=== PATIENT | female | born 1980 | race African-American/Black ===

== ENCOUNTER 2016-07-11 11:24 | Emergency (ER) | payer MEDICAID ==
[~2016-07-11] VITALS: Ht 170.2 cm; Wt 81.6 kg
[~2016-07-11 11:24] MED LIST: ALBUTEROL SULF8.5 GM INH; PROMETHAZINE-D118 ML ORAL
[2016-07-11 11:59] LABS: APPEARANCE,URINE CLEAR
[2016-07-11 12:00] LABS: KETONES,URINE NEGATIVE (NEGATIVE); LEUKOCYTE ESTERASE ,URINE NEGATIVE (NEGATIVE); NITRITE,URINE NEGATIVE (NEGATIVE); PH,URINE 5 (4.5-8.0); PROTEIN,URINE NEGATIVE (NEGATIVE); UROBILINOGEN,URINE NORMAL MG/DL (0.0-1.0)
[2016-07-11] MEDS ORDERED: Ketorolac 30mg Inj IM ONE (12:30)
[2016-07-11] MEDS ORDERED: Cyclobenzaprine 10mg Tab ORAL ONE (12:30)
[2016-07-11] MEDS ORDERED: CYCLOBENZAPRINE10 MG ORAL (13:26)
[2016-07-11] MEDS ORDERED: IBUPROFEN600 MG ORAL (13:26)
[2016-07-11] MEDS ORDERED: ZOFRAN ODT4 MG ORAL (13:26)
[2016-07-11 13:34] VITALS: BP 116/77
--- NOTE | 2016-07-11 13:41 | Emergency Room Report ---
History of Present Illness General Chief Complaint: Pain Source: Patient Present Illness HPI 35-year-old female presents ED complaining of left-sided flank pain. X3 days. States that she went camping last week and fell on her left ribs. Denies any other injuries. Notes 10 out of 10 pain to the left ribs, radiating through the back, throbbing, worse with twisting. No other aggravating or relieving factors. Denies chest pain or shortness of breath. Denies dysuria or hematuria. denies fevers or chills. Denies any other associated symptom Allergies: Coded Allergies: IODINE (Verified Allergy, Unknown, 07/11/16) PINEAPPLE (Verified Allergy, Unknown, 07/11/16) Uncoded Allergies: FISH (Allergy, Unknown, 07/11/16) Patient History Past Medical History: asthma Past Surgical History: none Pertinent Family History: none Social History: Denies: alcohol use, drug use, smoking Last Menstrual Period: Six weeks ago - test by PMD negative on Tuesday. Now: No Immunizations: UTD Reviewed Nursing Documentation: PMH: Agreed, PSxH: Agreed Nursing Documentation-PMH Hx Asthma: Yes Review of Systems All Other Systems: negative except mentioned in HPI Physical Exam Vital Signs Date Time Temp Pulse Resp B/P Pulse Ox O2 Delivery O2 Flow Rate FiO2 07/11/16 11:26 98.2 73 16 117/74 100 Room Air Sp02 EP Interpretation: reviewed, normal General Appearance: no apparent distress, alert, GCS 15, non-toxic Head: normocephalic Eyes: bilateral eye PERRL, bilateral eye normal inspection ENT: normal ENT inspection Neck: normal inspection Respiratory: lungs clear, normal breath sounds, speaking full sentences, other - reproducible L rib pain Cardiovascular #1: regular rate, rhythm, no edema Gastrointestinal: normal bowel sounds, non tender, soft, non-distended, no guarding, no rebound Rectal: deferred Genitourinary: no CVA tenderness Musculoskeletal: normal inspection Neurologic: alert, oriented x3, responsive, motor strength/tone normal, sensory intact, speech normal Psychiatric: normal inspection Skin: normal inspection Lymphatic: normal inspection Medical Decision Making Diagnostic Impression: Primary Impression: Rib contusion Qualified Codes: S20.212A - Contusion of left front wall of thorax, initial encounter ER Course Hospital Course 35-year-old female presents to ED with left-sided rib pain, flank pain Differential diagnoses include: rib fx, UTI, pyelonephritis Clinical course Patient placed on stretcher. After initial history and physical, I ordered pain medications and L rib series, UA UA negative Xrays prelim read shows no acute fracture/dislocation. Upon reassessment pain improved Diagnosis - rib contusion Stable and discharged to home with prescription for Motrin, flexeril, zofran. apply heat. weight bear as tolerated. Followup with PMD. Return to ED if symptoms recur or worsen Labs Test 07/11/16 11:46 Urine Color Yellow Urine Appearance Clear Urine pH 5 (4.5-8.0) Urine Specific [place] 1.020 (1.005-1.035) Urine Protein Negative (NEGATIVE) Urine Glucose (UA) Negative (NEGATIVE) Urine Ketones Negative (NEGATIVE) Urine Occult Blood Negative (NEGATIVE) Urine Nitrite Negative (NEGATIVE) Urine Bilirubin Negative (NEGATIVE) Urine Urobilinogen Normal MG/DL (0.0-1.0) Urine Leukocyte Esterase Negative (NEGATIVE) Urine HCG, Qualitative Negative Other X-Ray Diagnostic Results Other X-Ray Diagnostic Results : X-Ray Ordered: L rib series EP Interpretation: Yes Findings: no fractures, no dislocation, no soft tissue swelling Number of Views: 3 Last Vital Signs Date Time Temp Pulse Resp B/P Pulse Ox O2 Delivery O2 Flow Rate FiO2 07/11/16 13:34 83 14 116/77 100 Room Air 07/11/16 13:34 98.4 Status: improved Disposition: HOME, SELF-CARE Condition: Stable Scripts Ondansetron Odt* (ZOFRAN ODT*) 4 Mg Tab.rapdis 4 MG ORAL Q6H Y for Nausea & Vomiting, #30 TAB 0 Refills Prov: FRANCHESCA CARPENTER M.D. 07/11/16 Cyclobenzaprine Hcl* (FLEXERIL*) 10 Mg Tablet 10 MG ORAL TID Y for Muscle Spasm, #20 TAB Prov: FRANCHESCA CARPENTER M.D. 07/11/16 Ibuprofen* (MOTRIN*) 600 Mg Tablet 600 MG ORAL Q8H Y for For Pain, #30 TAB 0 Refills Prov: FRANCHESCA CARPENTER M.D. 07/11/16 Departure Forms: Return to Work Return to Work Date: Jul 13, 2016 Work Restrictions: No Heavy Lifting Patient Instructions: Rib Contusion FRANCHESCA CARPENTER M.D. Jul 11, 2016 13:41
--- NOTE | 2016-07-12 10:32 | Diagnostic Imaging Report ---
Indication: PAIN Technique: Multiple views of the left ribs Comparison: None Findings: There are questionable fractures of the left eighth and ninth ribs at the costochondral junctions, seen only a single view. No other acute fractures. No gross pneumothorax Impression: Equivocal fractures of the left eighth and ninth costochondral junctions. Correlate with clinical findings
== END 2016-07-11 13:37 | disposition home or self-care (01) ==
LOC: EMR 12:30
DX: S20.212A Contusion of left front wall of thorax, initial encounter (principal); J45.909 Unspecified asthma, uncomplicated; Z91.041 Radiographic dye allergy status; Z91.013 Allergy to seafood; Z91.018 Allergy to other foods; W18.30XA Fall on same level, unspecified, initial encounter; Y92.9 Unspecified place or not applicable; Y99.8 Other external cause status
CPT/HCPCS: 71100; 81003; 81025; 96372; 99284; J1885

== ENCOUNTER 2017-03-01 10:21 | Emergency (ER) | payer MEDICAID ==
[~2017-03-01] VITALS: Ht 167.6 cm; Wt 72.6 kg
[~2017-03-01 10:21] MED LIST changes: +CYCLOBENZAPRINE10 MG ORAL; +IBUPROFEN600 MG ORAL; +ZOFRAN ODT4 MG ORAL
--- NOTE | 2017-03-01 12:32 | Diagnostic Imaging Report ---
Indication: Pain right ankle Comparison: None Findings: 3 views of the right ankle obtained. No acute fracture, malalignment, periostitis, or osteochondral defects are identified. Soft tissues are unremarkable. Impression: Negative examination
--- NOTE | 2017-03-01 12:32 | Emergency Room Report ---
History of Present Illness General Chief Complaint: Lower Extremity Injury Source: Patient Present Illness HPI Patient twisted he ankle at home 1 hour prior to coming in. Unable to walk on ankle. Most of pain is lateral. No medicine taken. Denies prior injury to this area. Pain 10/10, burning/aching, some radiation to leg. No numbness. h/o asthma. No somatic complaints. Not . Allergies: Coded Allergies: IODINE (Verified Allergy, Unknown, 07/11/16) PINEAPPLE (Verified Allergy, Unknown, 07/11/16) Uncoded Allergies: FISH (Allergy, Unknown, 07/11/16) Patient History Past Medical History: see triage record Social History: Denies: smoking Social History Narrative student Reviewed Nursing Documentation: PMH: Agreed, PSxH: Agreed Nursing Documentation-PMH Hx Asthma: Yes Review of Systems All Other Systems: negative except mentioned in HPI Physical Exam Vital Signs Date Time Temp Pulse Resp B/P (MAP) Pulse Ox O2 Delivery O2 Flow Rate FiO2 03/01/17 10:29 98.2 66 20 120/66 98 Room Air Sp02 EP Interpretation: reviewed, normal General Appearance: well appearing, no apparent distress, GCS 15 Head: normocephalic, atraumatic Eyes: bilateral eye normal inspection, bilateral eye PERRL ENT: hearing grossly normal, normal voice, moist mucus membranes Neck: full range of motion, supple Respiratory: no respiratory distress, speaking full sentences Cardiovascular #2: 2+ dorsalis pedis (R) - good cap fill Gastrointestinal: normal inspection Musculoskeletal: no calf tenderness, decreased range of mation, other - ankle ligs stable but lateral tenderness, no 5th MT tend, unable to weight bear Neurologic: alert, motor strength/tone normal, sensory intact, grossly normal Psychiatric: mood/affect normal Skin: no rash, other - no ecchymoses Medical Decision Making Diagnostic Impression: Primary Impression: Ankle sprain Qualified Codes: S93.411A - Sprain of calcaneofibular ligament of right ankle , initial encounter ER Course Patient with ankle injury. Perley rules suggest x-ray to exclude fracture. Other dx: sprain. Analgesia given. Xrays without fx. Air splint applied by tech. Position excellent and neurovasc normal as checked by me. Pain decreased. Patient stable for outpatient observation and treatment. Other X-Ray Diagnostic Results Other X-Ray Diagnostic Results : X-Ray ordered: R ankle # of Views/Limited Vs Complete: 3 View Indication: Pain EP Interpretation: Yes Interpretation: no dislocation, no soft tissue swelling, no fractures, nonspecific bowel gas Impression: No acute disease Electronically Signed by: Angelo Cleveland MD Last Vital Signs Date Time Temp Pulse Resp B/P (MAP) Pulse Ox O2 Delivery O2 Flow Rate FiO2 03/01/17 13:14 98.2 68 20 120/66 98 Room Air Status: improved Disposition: HOME, SELF-CARE Condition: Improved Scripts Tramadol Hcl* (ULTRAM*) 50 Mg Tablet 50 MG ORAL Q6H Y for For Pain, #14 TAB 0 Refills Prov: Angelo Cleveland M.D. 03/01/17 Ibuprofen* (MOTRIN*) 600 Mg Tablet 600 MG ORAL Q6H Y for For Pain, #20 TAB Prov: Angelo Cleveland M.D. 03/01/17 Referrals: BHAVIK KINSEY,REFERRING (PCP) Angelo Cleveland M.D. Mar 01, 2017 12:32
[2017-03-01] MEDS ORDERED: IBUPROFEN600 MG ORAL (12:35)
[2017-03-01] MEDS ORDERED: TRAMADOL HCL50 MG ORAL (12:35)
[2017-03-01 13:14] VITALS: BP 120/66
== END 2017-03-01 12:35 | disposition home or self-care (01) ==
LOC: EMR 11:11
DX: S93.401A Sprain of unspecified ligament of right ankle, initial encounter (principal); W01.0XXA Fall on same level from slipping, tripping and stumbling without subsequent striking against object, initial encounter; Y92.89 Other specified places as the place of occurrence of the external cause; J45.909 Unspecified asthma, uncomplicated
CPT/HCPCS: 99284

== ENCOUNTER 2017-05-31 18:33 | Emergency (ER) | payer MEDICAID ==
[~2017-05-31] VITALS: Ht 170.2 cm; Wt 77.1 kg
[~2017-05-31 18:33] MED LIST changes: +TRAMADOL HCL50 MG ORAL
[2017-05-31] MEDS ORDERED: Ketorolac 60mg Inj IM ONE (20:45)
[2017-05-31] MEDS ORDERED: TAMIFLU75 MG ORAL (21:08)
[2017-05-31] MEDS ORDERED: PROMETHAZINE-D118 ML ORAL (21:08)
[2017-05-31] MEDS ORDERED: IBUPROFEN600 MG ORAL (21:08)
[2017-05-31 21:18] VITALS: BP 118/84
--- NOTE | 2017-05-31 22:03 | Emergency Room Report ---
History of Present Illness General Chief Complaint: Upper Respiratory Illness Source: Patient Present Illness [facility] The patient is a 36-year-old female who denies medical history presenting for 2 days of cough, fever, chills, and total body pain. She denies any known sick contacts recent travel. She does not have flu shot this year. She has not tried any medications yet. She admits to nausea but denies other symptoms including vomiting, rash, dizziness, neck stiffness Allergies: Coded Allergies: IODINE (Verified Allergy, Unknown, 07/11/16) PINEAPPLE (Verified Allergy, Unknown, 07/11/16) Uncoded Allergies: FISH (Allergy, Unknown, 07/11/16) Patient History Past Medical History: see triage record Pertinent Family History: none Last Menstrual Period: Current Now: No Reviewed Nursing Documentation: PMH: Agreed, PSxH: Agreed Nursing Documentation-PMH Hx Hypertension: Yes Hx Asthma: Yes Review of Systems All Other Systems: negative except mentioned in HPI Physical Exam Vital Signs Date Time Temp Pulse Resp B/P (MAP) Pulse Ox O2 Delivery O2 Flow Rate FiO2 05/31/17 18:56 99.9 84 16 114/83 98 Room Air Sp02 EP Interpretation: reviewed, normal General Appearance: no apparent distress, alert, GCS 15, non-toxic, lethargic Head: normocephalic, atraumatic Eyes: bilateral eye normal inspection, bilateral eye PERRL ENT: hearing grossly normal, no angioedema, normal voice, pharyngeal erythema Neck: full range of motion, supple/symm/no masses Respiratory: chest non-tender, lungs clear, normal breath sounds, speaking full sentences Cardiovascular #1: regular rate, rhythm, no edema Gastrointestinal: normal bowel sounds, non tender, soft, non-distended, no guarding, no rebound Genitourinary: normal inspection, no CVA tenderness Musculoskeletal: back normal, gait/station normal, normal range of motion, non- tender Neurologic: alert, oriented x3, responsive, motor strength/tone normal, sensory intact, speech normal Psychiatric: judgement/insight normal, memory normal, mood/affect normal, no suicidal/homicidal ideation Skin: normal color, no rash, warm/dry, well hydrated Lymphatic: no adenopathy Medical Decision Making PA Attestation Dr. Rivero is my supervising physician. Patient management was discussed with my supervising physician Diagnostic Impression: Primary Impression: Influenza ER Course The patient is a 36-year-old female who denies medical history presenting for 2 days of cough, fever, chills, and total body pain Differential diagnosis include but not limited to influenza, pharyngitis, sinusitis, AOM, bronchitis, PNA Physical exam: Afebrile but temp 100.0F. No apparent distress. Lethargic HEENT exam: There is pharyngeal erythema. Uvula midline. Moist mucous membranes. There is no cervical lymphadenopathy. Lungs are clear to auscultation bilaterally Skin is warm and dry. No rash Given IM toradol and zofran The patient will be discharged home with a prescription for motrin, tamiflu, and cough medication ER precautions. Patient will followup with primary care Last Vital Signs Date Time Temp Pulse Resp B/P (MAP) Pulse Ox O2 Delivery O2 Flow Rate FiO2 05/31/17 18:56 99.9 84 16 114/83 98 Room Air Status: improved Disposition: HOME, SELF-CARE Condition: Improved Scripts D-Methorphan Hb/Prometh Hcl* (PROMETHAZINE-DM SYRUP*) 118 Ml Syrup 5 ML ORAL Q6H Y for For Cough, #118 ML 0 Refills Prov: RUBENS TRAN.A. 05/31/17 Oseltamivir Phosphate (Tamiflu) 75 Mg Capsule 75 MG ORAL TWICE A DAY, #10 CAP Prov: CARMELAANRUBENS P.A. 05/31/17 Ibuprofen* (MOTRIN*) 600 Mg Tablet 600 MG ORAL Q8H Y for For Pain, #30 TAB 0 Refills Prov: RUBENS TRAN.A. 05/31/17 Patient Instructions: Influenza, Adult Additional Instructions: I discussed my findings with the patient. All questions and concerns have been answered. Treatment and medication compliance have been addressed. I advised the patient that they need to follow up with PMD in 3-5 days. Return to ED if symptoms worsen, new symptoms arise, or if needed for any reason. Patient verbalized understanding of discharge instructions. RUBENS TRAN May 31, 2017 22:03
== END 2017-05-31 21:18 | disposition home or self-care (01) ==
LOC: EMR 19:09
DX: J11.1 Influenza due to unidentified influenza virus with other respiratory manifestations (principal); I10 Essential (primary) hypertension; J45.909 Unspecified asthma, uncomplicated; Z91.013 Allergy to seafood; Z91.041 Radiographic dye allergy status; Z91.018 Allergy to other foods
CPT/HCPCS: 96372; 99284

== ENCOUNTER 2017-07-17 14:26 | Emergency (ER) | payer MEDICAID ==
[~2017-07-17] VITALS: Ht 170.2 cm; Wt 81.6 kg
[~2017-07-17 14:26] MED LIST changes: +TAMIFLU75 MG ORAL
[2017-07-17] MEDS ORDERED: IBUPROFEN600 MG ORAL (16:13)
[2017-07-17] MEDS ORDERED: PROMETHAZINE-D118 ML ORAL (16:13)
[2017-07-17 16:27] VITALS: BP 111/78
--- NOTE | 2017-07-17 17:41 | Emergency Room Report ---
History of Present Illness General Chief Complaint: Upper Respiratory Illness Source: Patient Present Illness [facility] The patient is a 36-year-old female presenting for one day of cough and subjective fever. She admits to a sick contact who is her daughter with similar symptoms. She states the cough is productive with yellow sputum. This causes an 8/10 dull ache to her mid chest. Occurs with coughing only. Does not radiate. She denies other symptoms including nausea, vomiting, shortness of breath, hemoptysis, diarrhea, fatigue, headache Allergies: Coded Allergies: IODINE (Verified Allergy, Unknown, 07/11/16) PINEAPPLE (Verified Allergy, Unknown, 07/11/16) Uncoded Allergies: FISH (Allergy, Unknown, 07/11/16) Patient History Past Medical History: see triage record Pertinent Family History: none Last Menstrual Period: 07/02/17 Now: No Reviewed Nursing Documentation: PMH: Agreed, PSxH: Agreed Nursing Documentation-PMH Hx Hypertension: Yes Hx Asthma: Yes Review of Systems All Other Systems: negative except mentioned in HPI Physical Exam Vital Signs Date Time Temp Pulse Resp B/P (MAP) Pulse Ox O2 Delivery O2 Flow Rate FiO2 07/17/17 14:47 100.8 96 18 130/84 97 Room Air Sp02 EP Interpretation: reviewed, normal General Appearance: no apparent distress, alert, GCS 15, non-toxic Head: normocephalic, atraumatic Eyes: bilateral eye normal inspection, bilateral eye PERRL ENT: hearing grossly normal, normal pharynx, no angioedema, normal voice Neck: full range of motion, supple/symm/no masses Respiratory: chest non-tender, lungs clear, normal breath sounds, speaking full sentences Cardiovascular #1: regular rate, rhythm, no edema Musculoskeletal: back normal, gait/station normal, normal range of motion, non- tender Neurologic: alert, oriented x3, responsive, motor strength/tone normal, sensory intact, speech normal Psychiatric: judgement/insight normal, memory normal, mood/affect normal, no suicidal/homicidal ideation Skin: normal color, no rash, warm/dry, well hydrated Lymphatic: no adenopathy Medical Decision Making PA Attestation Dr. Finley is my supervising physician. Patient management was discussed with my supervising physician Diagnostic Impression: Primary Impression: Cough ER Course The patient is a 36-year-old female presenting for one day of cough and subjective fever. Differential diagnosis include but not limited to pharyngitis, sinusitis, AOM, bronchitis, PNA, influenza PE: No apparent distress. Febrile. No TTP over maxillary or frontal sinuses. Lungs CTA bilat. No wheezing. No accessory muscle use. Heart: RRR, no abnormal heart sounds Ears: external auditory canal clear. Non erythematous. Bilat TM intact. Cone of light present bilat. No bulging of TM. No serous fluid seen. No nasal D/C No cervical lymphad No tonsillar exudate. Uvula midline.Oropharynx non erythematous The patient is given Motrin for fever Chest x-ray unremarkable She'll be discharged home and treated for likely viral illness. ER precautions are given Chest X-Ray Diagnostic Results Chest X-Ray Diagnostic Results : Chest X-Ray Ordered: Yes # of Views/Limited/Complete: 1 View Indication: Other - cough PA Xray: Interpretation reviewed, by supervising MD, and agrees with findings. Interpretation: no consolidation, no effusion, no pneumothorax, no acute cardiopulmonary disease Impression: No acute disease Electronically Signed by: Calixto Tran PA-C Last Vital Signs Date Time Temp Pulse Resp B/P (MAP) Pulse Ox O2 Delivery O2 Flow Rate FiO2 07/17/17 16:27 100.8 19 111/78 98 Room Air 07/17/17 16:27 85 Status: improved Disposition: HOME, SELF-CARE Condition: Improved Scripts Ibuprofen* (MOTRIN*) 600 Mg Tablet 600 MG ORAL Q8H Y for For Pain, #30 TAB 0 Refills Prov: TERZIAN,CALIXTO P.A. 07/17/17 D-Methorphan Hb/Prometh Hcl* (PROMETHAZINE-DM SYRUP*) 118 Ml Syrup 5 ML ORAL Q6H Y for For Cough, #118 ML 0 Refills Prov: TERZIAN,CALIXTO P.A. 07/17/17 Patient Instructions: Cough, Adult Additional Instructions: I discussed my findings with the patient. All questions and concerns have been answered. Treatment and medication compliance have been addressed. I advised the patient that they need to follow up with PMD in 3-5 days. Return to ED if pain remains or worsens, cough worsens or remains, you notice blood in your sputum, you notice wheezing, you experience a fever, or if needed for any reason. Patient verbalized understanding of discharge instructions. CALIXTO TRAN Jul 17, 2017 17:41
--- NOTE | 2017-07-18 10:47 | Diagnostic Imaging Report ---
Indication: Cough Comparison: 03/25/2011 A single view chest radiograph was obtained. Findings: Cardiomediastinal appearance is within normal limits for age. Pulmonary vascularity is appropriate. The diaphragmatic contour is smooth and costophrenic angles are sharp. No pleural effusions are identified. The bones are unremarkable. Impression: No acute findings
== END 2017-07-17 16:27 | disposition home or self-care (01) ==
LOC: EMR 14:45
DX: R05 Cough (principal); J45.909 Unspecified asthma, uncomplicated; I10 Essential (primary) hypertension; Z91.041 Radiographic dye allergy status; Z91.013 Allergy to seafood; Z91.018 Allergy to other foods
CPT/HCPCS: 71045; 99283

== ENCOUNTER 2017-08-08 22:55 | Emergency (ER) | payer MEDICAID ==
[~2017-08-08] VITALS: Ht 170.2 cm; Wt 85.3 kg
[2017-08-09] MEDS ORDERED: IBUPROFEN600 MG ORAL
[2017-08-09] MEDS ORDERED: ROBAXIN-750750 MG PO
[2017-08-09 00:35] VITALS: BP 112/72
[2017-08-09 00:40] VITALS: BP 125/84
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
--- NOTE | 2017-08-09 10:27 | Diagnostic Imaging Report ---
Indication: Chest pain Comparison: 07/17/2017 A single view chest radiograph was obtained. Findings: The findings are unchanged. Cardiac mediastinal silhouette is normal. Lungs are essentially clear. IMPRESSION: No acute disease
--- NOTE | 2017-08-09 16:25 | Cardiology Report ---
APPROVED REPORT EKG Measurement Heart [id number] Normal sinus rhythm Normal ECG
== END 2017-08-09 00:40 | disposition home or self-care (01) ==
LOC: EMR 23:21
DX: S13.9XXA Sprain of joints and ligaments of unspecified parts of neck, initial encounter (principal); I10 Essential (primary) hypertension; J45.909 Unspecified asthma, uncomplicated; Z91.041 Radiographic dye allergy status; Z91.018 Allergy to other foods; Z91.013 Allergy to seafood; R07.9 Chest pain, unspecified; V43.62XA Car passenger injured in collision with other type car in traffic accident, initial encounter; Y92.410 Unspecified street and highway as the place of occurrence of the external cause
CPT/HCPCS: 71045; 93005; 99284

== ENCOUNTER 2018-02-06 12:09 | Emergency (ER) | payer MEDICAID ==
[~2018-02-06] VITALS: Ht 175.3 cm; Wt 76.2 kg
[~2018-02-06 12:09] MED LIST changes: +ROBAXIN-750750 MG PO
[2018-02-06] MEDS ORDERED: Cephalexin 500mg cap ORAL ONE (12:45)
--- NOTE | 2018-02-06 12:46 | Emergency Room Report ---
History of Present Illness General Chief Complaint: Lower Extremity Injury Source: Patient Present Illness HPI Patient present with complaints of right knee pain She reports that she had a fall 3 days ago Since then she has noticed some discharge from the knee She also noticed increased swelling and mild redness Pain is worse with ambulation Denies any pelvic pain denies any ankle pain Patient also has discomfort to the right wrist Denies any fevers or chills Allergies: Coded Allergies: IODINE (Verified Allergy, Unknown, 07/11/16) PINEAPPLE (Verified Allergy, Unknown, 07/11/16) Uncoded Allergies: FISH (Allergy, Unknown, 07/11/16) Patient History Past Medical History: see triage record Pertinent Family History: none Now: No Reviewed Nursing Documentation: PMH: Agreed; PSxH: Agreed Nursing Documentation-PMH Past Medical History: No History, Except For Hx Hypertension: Yes Hx Asthma: Yes Review of Systems All Other Systems: negative except mentioned in HPI Physical Exam Vital Signs Date Time Temp Pulse Resp B/P (MAP) Pulse Ox O2 Delivery O2 Flow Rate FiO2 02/06/18 12:30 98.1 64 20 113/74 100 Room Air 98.1 Sp02 EP Interpretation: reviewed, normal General Appearance: well appearing, no apparent distress Head: normocephalic, atraumatic Eyes: bilateral eye PERRL, bilateral eye EOMI ENT: normal pharynx, no angioedema Neck: supple Respiratory: lungs clear Cardiovascular #1: regular rate, rhythm Gastrointestinal: non tender, soft Musculoskeletal: other - 2 skin abrasions involving the mid and lower aspect of the patella, surrounding erythema, there is a small effusion as well, patient is able to flex and extend the knee itself, no obvious fluctuance pelvic and ankle on the same region are nontender Neurologic: alert, oriented x3, responsive Skin: other - As above Lymphatic: no adenopathy Medical Decision Making Diagnostic Impression: Primary Impression: Abrasion Additional Impressions: Contusion Cellulitis ER Course Given the patient's history and presentation X-ray imaging was obtained of the patient's knee The wrist itself is freely mobile and I do not suspect any acute fractures Date in the x-rays did not show any acute pathology Given the erythema and the concern for early cellulitis patient was provided with antibiotics here and prescription in for home And is stable for close outpatient follow-up Other X-Ray Diagnostic Results Other X-Ray Diagnostic Results : X-Ray ordered: Right knee # of Views/Limited Vs Complete: 3 View Indication: Pain EP Interpretation: Yes Interpretation: no dislocation, no soft tissue swelling, no fractures Impression: No acute disease Electronically Signed by: Casimiro Last Vital Signs Date Time Temp Pulse Resp B/P (MAP) Pulse Ox O2 Delivery O2 Flow Rate FiO2 02/06/18 12:30 98.1 64 20 113/74 100 Room Air 98.1 Status: improved Disposition: HOME, SELF-CARE Condition: Improved Scripts Cephalexin* (KEFLEX*) 500 Mg Capsule 500 MG ORAL EVERY 6 HOURS for 10 Days, CAP Prov: Eulogio Rivero DO 02/06/18 Ibuprofen* (MOTRIN*) 600 Mg Tablet 600 MG ORAL Q8H PRN for For Pain, #20 TAB 0 Refills Prov: Eulogio Rivero DO 02/06/18 Additional Instructions: Patient is provided with the discharge instructions notified to follow up with primary doctor in the next 2-3 days otherwise return to the er with any worsening symptoms. Please note that this report is being documented using [employer] technology. This can lead to erroneous entry secondary to incorrect interpretation by the dictating instrument. Eulogio Rivero DO Feb 06, 2018 12:46
[2018-02-06] MEDS ORDERED: Tylenol #3 tab (300mg/30mg) ORAL ONE (13:30)
[2018-02-06] MEDS ORDERED: Bacitracin Oint UD TOPIC ONE ×2 (13:38→14:00)
[2018-02-06] MEDS ORDERED: IBUPROFEN600 MG ORAL (13:41)
[2018-02-06] MEDS ORDERED: CEPHALEXIN500 MG ORAL (13:41)
[2018-02-06 13:52] VITALS: BP 125/60
--- NOTE | 2018-02-07 10:35 | Diagnostic Imaging Report ---
Indication: Trauma, pain, status post fall Technique: 3 views of the right knee Comparison: None Findings: No acute fractures. No dislocations. No suprapatellar effusion. Impression: Negative
== END 2018-02-06 13:52 | disposition home or self-care (01) ==
LOC: EMR 13:28
DX: L03.115 Cellulitis of right lower limb (principal); S80.211A Abrasion, right knee, initial encounter; W18.30XA Fall on same level, unspecified, initial encounter; Y93.9 Activity, unspecified; Y92.9 Unspecified place or not applicable; I10 Essential (primary) hypertension; J45.909 Unspecified asthma, uncomplicated
CPT/HCPCS: 99283

== ENCOUNTER 2018-05-23 11:00 | Emergency (ER) | payer MEDICAID ==
[~2018-05-23] VITALS: Ht 165.1 cm; Wt 72.6 kg
[~2018-05-23 11:00] MED LIST changes: +CEPHALEXIN500 MG ORAL
[2018-05-23 11:05] VITALS: BP 140/85
[2018-05-23] MEDS ORDERED: UNOBMED (11:13)
[2018-05-23 11:58] LABS: APPEARANCE,URINE CLEAR; BILIRUBIN, URINE NEGATIVE (NEGATIVE); COLOR,URINE PALE YELLOW; GLUCOSE, URINE (UA) NEGATIVE (NEGATIVE); KETONES,URINE NEGATIVE (NEGATIVE); LEUKOCYTE ESTERASE ,URINE 1+ (NEGATIVE); NITRITE,URINE NEGATIVE (NEGATIVE); PH,URINE 6 (4.5-8.0); PROTEIN,URINE NEGATIVE (NEGATIVE); UROBILINOGEN,URINE NORMAL MG/DL (0.0-1.0)
[2018-05-23] MEDS ORDERED: Albuterol/Ipratropium 3ml neb HHN ONE (12:00)
[2018-05-23 12:04] LABS: BASOPHILS % (AUTO) 1.4 % (0.0-2.0); EOSINOPHILS % (AUTO) 2.4 % (0.0-3.0); HEMOGLOBIN 10.9 G/DL (12.0-16.0); LYMPHOCYTES % (AUTO) 27.5 % (20.0-45.0); MEAN CORPUSCULAR VOLUME 88 FL (80-99); MONOCYTES % (AUTO) 7.6 % (1.0-10.0); NEUTROPHILS % (AUTO) 61.1 % (45.0-75.0); PLATELET COUNT 318 K/UL (150-450); RED BLOOD COUNT 3.96 M/UL (4.20-5.40); RED CELL DISTRIBUTION WIDTH 12.7 % (11.6-14.8); WHITE BLOOD COUNT 7.5 K/UL (4.8-10.8)
[2018-05-23 12:08] LABS: ANION GAP 9 mmol/L (5-15); BLOOD UREA NITROGEN 6 mg/dL (7-18); CALCIUM 8.6 MG/DL (8.5-10.1); CARBON DIOXIDE 25 MMOL/L (21-32); CHLORIDE 104 MMOL/L (98-107); CREATININE 0.8 MG/DL (0.55-1.30); SODIUM 138 MMOL/L (136-145)
[2018-05-23 12:12] LABS: ALANINE AMINOTRANSFERASE 14 U/L (12-78); ALBUMIN 3.6 G/DL (3.4-5.0); ALBUMIN/GLOBULIN RATIO 0.7 (1.0-2.7); ALKALINE PHOSPHATASE 87 U/L (46-116); ASPARTATE AMINO TRANSFERASE 17 U/L (15-37); BILIRUBIN,TOTAL 0.5 MG/DL (0.2-1.0)
--- NOTE | 2018-05-23 13:17 | Emergency Room Report ---
History of Present Illness General Chief Complaint: General Complaint Source: Patient, Medical Record Present Illness HPI Patient is a 37-year-old female presented after increased vaginal bleeding. Patient had recently been seen by her primary care physician. She was noted to have the spotting for several weeks. She had prior history of ovarian cyst. Allergies: Coded Allergies: IODINE (Verified Allergy, Unknown, 07/11/16) PINEAPPLE (Verified Allergy, Unknown, 07/11/16) Uncoded Allergies: FISH (Allergy, Unknown, 07/11/16) Patient History Past Medical History: see triage record Reviewed Nursing Documentation: PMH: Agreed; PSxH: Agreed Nursing Documentation-PMH Hx Hypertension: Yes Hx Asthma: Yes Review of Systems All Other Systems: negative except mentioned in HPI Physical Exam Vital Signs Date Time Temp Pulse Resp B/P (MAP) Pulse Ox O2 Delivery O2 Flow Rate FiO2 05/23/18 11:05 97.5 76 15 140/85 100 Room Air Sp02 EP Interpretation: reviewed, normal General Appearance: normal inspection, well appearing, no apparent distress, alert, GCS 15 Head: atraumatic ENT: normal ENT inspection, hearing grossly normal, normal voice Neck: normal inspection, full range of motion, supple, no bony tend Respiratory: normal inspection, lungs clear, normal breath sounds, no respiratory distress, no retraction, no wheezing Cardiovascular #1: regular rate, rhythm, no edema Gastrointestinal: normal inspection, normal bowel sounds, non tender, soft, no guarding, no hernia Genitourinary: no CVA tenderness Musculoskeletal: normal inspection, back normal, normal range of motion Neurologic: normal inspection, alert, oriented x3, responsive, airport electrician III-XII nml as tested, speech normal Psychiatric: normal inspection, judgement/insight normal, mood/affect normal Skin: normal inspection, normal color, no rash Medical Decision Making Diagnostic Impression: Primary Impression: Metrorrhagia ER Course The patient presented for vaginal bleeding. Differential diagnosis included was not limited to ruptured ovarian cyst, ovarian torsion, bowel obstruction, hernia, ectopic among others.Because of complexity of patient's case laboratory testing and imaging studies were ordered. The patient's laboratory testing showed mild anemia. Patient did not show any evidence of ectopic as proceed test was negative.The patient presented some evidence of fibroid uterus on ultrasound The patient is advised to follow up with primary care doctor in 1-2 days. Patient is advised to return if any worsening condition or if any changes in status that are concerning. This report is dictated with [employer] fishing boat captain software which may occasionally lead to discrepancies related to use of this software. Laboratory Tests Test 05/23/18 11:10 White Blood Count 7.5 K/UL (4.8-10.8) Red Blood Count 3.96 M/UL (4.20-5.40) L Hemoglobin 10.9 G/DL (12.0-16.0) L Hematocrit 35.0 % (37.0-47.0) L Mean Corpuscular Volume 88 FL (80-99) Mean Corpuscular Hemoglobin 27.6 PG (27.0-31.0) Mean Corpuscular Hemoglobin Concent 31.3 G/DL (32.0-36.0) L Red Cell Distribution Width 12.7 % (11.6-14.8) Platelet Count 318 K/UL (150-450) Mean Platelet Volume 7.8 FL (6.5-10.1) Neutrophils (%) (Auto) 61.1 % (45.0-75.0) Lymphocytes (%) (Auto) 27.5 % (20.0-45.0) Monocytes (%) (Auto) 7.6 % (1.0-10.0) Eosinophils (%) (Auto) 2.4 % (0.0-3.0) Basophils (%) (Auto) 1.4 % (0.0-2.0) Prothrombin Time 10.4 SEC (9.30-11.50) Prothrombin Time INR 1.0 (0.9-1.1) PTT 25 SEC (23-33) Urine Color Pale yellow Urine Appearance Clear Urine pH 6 (4.5-8.0) Urine Specific [place] 1.010 (1.005-1.035) Urine Protein Negative (NEGATIVE) Urine Glucose (UA) Negative (NEGATIVE) Urine Ketones Negative (NEGATIVE) Urine Blood 5+ (NEGATIVE) H Urine Nitrite Negative (NEGATIVE) Urine Bilirubin Negative (NEGATIVE) Urine Urobilinogen Normal MG/DL (0.0-1.0) Urine Leukocyte Esterase 1+ (NEGATIVE) H Urine RBC Tntc /HPF (0 - 2) H Urine WBC 0-2 /HPF (0 - 2) Urine Squamous Epithelial Cells Occasional /LPF Urine Bacteria Occasional /HPF (NONE) Sodium Level 138 MMOL/L (136-145) Potassium Level 4.0 MMOL/L (3.5-5.1) Chloride Level 104 MMOL/L (98-107) Carbon Dioxide Level 25 MMOL/L (21-32) Anion Gap 9 mmol/L (5-15) Blood Urea Nitrogen 6 mg/dL (7-18) L Creatinine 0.8 MG/DL (0.55-1.30) Estimate Glomerular Filtration Rate > 60 mL/min (>60) Glucose Level 94 MG/DL (74-106) Calcium Level 8.6 MG/DL (8.5-10.1) Total Bilirubin 0.5 MG/DL (0.2-1.0) Aspartate Amino Transferase (AST) 17 U/L (15-37) Alanine Aminotransferase (ALT) 14 U/L (12-78) Alkaline Phosphatase 87 U/L (46-116) Troponin I 0.000 ng/mL (0.000-0.056) Total Protein 8.6 G/DL (6.4-8.2) H Albumin 3.6 G/DL (3.4-5.0) Globulin 5.0 g/dL Albumin/Globulin Ratio 0.7 (1.0-2.7) L Lipase 101 U/L (73-393) Human Chorionic Gonadotropin, Quant < 1 mIU/mL (1-6) L EKG Diagnostic Results Rate: normal Rhythm: NSR ST Segments: no acute changes Rhythm Strip Diag. Results EP Interpretation: yes Rhythm: NSR, no PVC's Last Vital Signs Date Time Temp Pulse Resp B/P (MAP) Pulse Ox O2 Delivery O2 Flow Rate FiO2 05/23/18 11:10 77 18 Room Air 05/23/18 11:08 98.4 140/92 95 Status: improved Disposition: HOME, SELF-CARE Condition: Stable Scripts Ferrous Sulfate* (FERROUS SULFATE*) 325 Mg Tablet 325 MG ORAL DAILY, #30 TAB 0 Refills Prov: Ethan Finley MD 05/23/18 Referrals: BHAVIK KINSEY,REFERRING (PCP) Ethan Finley MD May 23, 2018 13:17
[2018-05-23] MEDS ORDERED: FERROUS SULFAT325 MG ORAL (13:31)
[2018-05-23 13:47] VITALS: BP 119/65
[2018-05-23 13:48] VITALS: BP 119/65
--- NOTE | 2018-05-23 15:44 | Diagnostic Imaging Report ---
Indication: Pelvic pain test Technique: Transabdominal and transvaginal images Comparison: none Findings: Uterus measures 10.3 cm length by 4.6 cm AP. Endometrium measures 1 mm thick. The myometrium is diffusely somewhat heterogeneous. Some shadowing calcification is seen in the upper fundus. There are cervical nabothian cysts. There is a small amount of free fluid in the cul-de-sac. The right ovary measures 2.3 cm in length. The left ovary measures 3.3 cm in length. Impression: No acute process Uterine fibroids Free pelvic cul-de-sac fluid, presumably physiologic
== END 2018-05-23 13:49 | disposition home or self-care (01) ==
LOC: EMR 11:28
DX: N92.1 Excessive and frequent menstruation with irregular cycle (principal); I10 Essential (primary) hypertension; J45.909 Unspecified asthma, uncomplicated; D25.9 Leiomyoma of uterus, unspecified; N88.8 Other specified noninflammatory disorders of cervix uteri; Z91.018 Allergy to other foods
CPT/HCPCS: 36415; 76830; 76856; 80053; 81003; 83690; 84484; 84702; 85025; 85610; 85730; 94640; 96374; 99284; J2405; J7620

== ENCOUNTER 2019-03-18 18:34 | Emergency (ER) | payer MEDICAID ==
[~2019-03-18] VITALS: Ht 170.2 cm; Wt 77.1 kg
[~2019-03-18 18:34] MED LIST changes: +FERROUS SULFAT325 MG ORAL; +UNOBMED
--- NOTE | 2019-03-18 19:12 | NUR ---
ED Nurse Note:pt. came from home with c/o asthma exacerbation and chest discomfort, no SOB noted on arrival, EKG was done
[2019-03-18 19:15] VITALS: BP 124/84
--- NOTE | 2019-03-18 19:15 | NUR ---
ED Nurse Note: Received report from Amina NASSAR. Pt alert, oriented and verbally responsive. No SOB. Breathing even and unlabored.
--- NOTE | 2019-03-18 19:16 | Emergency Room Report ---
History of Present Illness General Chief Complaint: Asthma Source: Patient Present Illness HPI 38-year-old female presents to the emergency department complaining of several episodes of shortness of breath, dizziness, lightheadedness in addition to heart palpitations starting yesterday. Patient reports history of asthma she reports very mild wheezing she denies cough, fevers or chills. Patient reports some nausea as well she denies vertigo she states she has a history of PR 5 years ago. Patient reports history of high blood pressure and states that she is noncompliant with medications. Patient also states she is noncompliant with asthma medications as well. 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 She denies abdominal pain or tenderness, visual changes, actual episodes of vomiting, constipation or diarrhea. Patient denies urinary frequency, urgency, dysuria or hematuria. No other aggravating or relieving factors at this time. Patient states she had her last episode of heart palpitation and dizziness while in the waiting room prior to triage. She denies night sweats, unintentional weight loss, hx of thyroid disorder or . Pt. denies ETOH , Drug use or smoking hx. Allergies: Coded Allergies: IODINE (Verified Allergy, Unknown, 07/11/16) PINEAPPLE (Verified Allergy, Unknown, 07/11/16) Uncoded Allergies: FISH (Allergy, Unknown, 07/11/16) Patient History Past Medical History: see triage record Past Surgical History: none Pertinent Family History: none Last Menstrual Period: 03/01/2019 Reviewed Nursing Documentation: PMH: Agreed; PSxH: Agreed Nursing Documentation-PMH Past Medical History: No History, Except For Hx Hypertension: Yes Hx Asthma: Yes Review of Systems All Other Systems: negative except mentioned in HPI Physical Exam Vital Signs Date Time Temp Pulse Resp B/P (MAP) Pulse Ox O2 Delivery O2 Flow Rate FiO2 03/18/19 18:43 99.1 84 16 124/84 (97) 99 Room Air Sp02 EP Interpretation: reviewed, normal General Appearance: no apparent distress, alert, GCS 15, non-toxic Head: normocephalic, atraumatic Eyes: bilateral eye normal inspection, bilateral eye PERRL ENT: hearing grossly normal, normal voice Neck: full range of motion Respiratory: chest non-tender, lungs clear, normal breath sounds, no wheezing, speaking full sentences Cardiovascular #1: regular rate, rhythm, no edema Gastrointestinal: normal bowel sounds, non tender, soft, non-distended Genitourinary: normal inspection, no CVA tenderness Musculoskeletal: gait/station normal, normal range of motion, non-tender Neurologic: alert, oriented x3, responsive, motor strength/tone normal, sensory intact, normal gait, speech normal, grossly normal Psychiatric: judgement/insight normal Skin: no rash, normal inspection, warm/dry Medical Decision Making PA Attestation Dr. Cleveland Is my supervising Physician whom patient management has been discussed with. Diagnostic Impression: Primary Impression: Asthma Qualified Codes: J45.20 - Mild intermittent asthma, uncomplicated Additional Impression: UTI (urinary tract infection) Qualified Codes: N30.00 - Acute cystitis without hematuria ER Course 38-year-old female presents to the emergency department complaining of several episodes of shortness of breath, dizziness, lightheadedness in addition to heart palpitations starting yesterday. Patient reports history of asthma she reports very mild wheezing she denies cough, fevers or chills. Patient reports some nausea as well she denies vertigo she states she has a history of PR 5 years ago. Patient reports history of high blood pressure and states that she is noncompliant with medications. Patient also states she is noncompliant with asthma medications as well. 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 She denies abdominal pain or tenderness, visual changes, actual episodes of vomiting, constipation or diarrhea. Patient denies urinary frequency, urgency, dysuria or hematuria. No other aggravating or relieving factors at this time. Patient states she had her last episode of heart palpitation and dizziness while in the waiting room prior to triage. She denies night sweats, unintentional weight loss, hx of thyroid disorder or . Pt. denies ETOH , Drug use or smoking hx. Ddx considered but are not limited to PR, hypovolemia, asthma exacerbation, CHF , URI, pneumonia, PE, strep pharyngitis, meningitis. Vital signs: Pt. is afebrile, VS are WNL H&PE are most consistent with complicated cardiac history with noncompliance to medication warranting further laboratory work-up and investigation to rule out cardiac etiology. ORDERS: -EK bpm NSR, no acute ST changes. -CBC: 9,8 hgb -CMP: unremarkable -Troponin: 0.035 ( WNL) -CK: WNL - UA: Moderate bacteria, many squamous cells, Leuks 1+ , possible contamination will treat. - urine hCG: Negative -Ortho Static VS: Negative INTERVENTIONS: --Albuterol nebulized treatment. -1 Liter NS DISCHARGE: At this time pt. is stable for d/c to home. Will provide printed patient care instructions, and any necessary prescriptions. Care plan and follow up instructions have been discussed with the patient prior to discharge. Labs Test 03/18/19 19:55 03/18/19 21:41 White Blood Count 9.7 K/UL (4.8-10.8) Red Blood Count 4.28 M/UL (4.20-5.40) Hemoglobin 9.8 G/DL (12.0-16.0) Hematocrit 32.3 % (37.0-47.0) Mean Corpuscular Volume 76 FL (80-99) Mean Corpuscular Hemoglobin 22.9 PG (27.0-31.0) Mean Corpuscular Hemoglobin Concent 30.3 G/DL (32.0-36.0) Red Cell Distribution Width 14.1 % (11.6-14.8) Platelet Count 265 K/UL (150-450) Mean Platelet Volume 8.9 FL (6.5-10.1) Neutrophils (%) (Auto) 58.0 % (45.0-75.0) Lymphocytes (%) (Auto) 30.1 % (20.0-45.0) Monocytes (%) (Auto) 8.8 % (1.0-10.0) Eosinophils (%) (Auto) 1.4 % (0.0-3.0) Basophils (%) (Auto) 1.6 % (0.0-2.0) Sodium Level 137 MMOL/L (136-145) Potassium Level 4.1 MMOL/L (3.5-5.1) Chloride Level 105 MMOL/L (98-107) Carbon Dioxide Level 24 MMOL/L (21-32) Anion Gap 8 mmol/L (5-15) Blood Urea Nitrogen 26 mg/dL (7-18) Creatinine 0.8 MG/DL (0.55-1.30) Estimat Glomerular Filtration Rate > 60 mL/min (>60) Glucose Level 90 MG/DL (74-106) Calcium Level 8.9 MG/DL (8.5-10.1) Total Bilirubin 0.2 MG/DL (0.2-1.0) Aspartate Amino Transf (AST/SGOT) 17 U/L (15-37) Alanine Aminotransferase (ALT/SGPT) 19 U/L (12-78) Alkaline Phosphatase 112 U/L (46-116) Total Creatine Kinase 46 U/L (26-308) Troponin I 0.035 ng/mL (0.000-0.056) Total Protein 8.4 G/DL (6.4-8.2) Albumin 3.7 G/DL (3.4-5.0) Globulin 4.7 g/dL Albumin/Globulin Ratio 0.8 (1.0-2.7) Urine Color Pale yellow Urine Appearance Slightly cloudy Urine pH 5 (4.5-8.0) Urine Specific Seney 1.025 (1.005-1.035) Urine Protein 1+ (NEGATIVE) Urine Glucose (UA) Negative (NEGATIVE) Urine Ketones Negative (NEGATIVE) Urine Blood 4+ (NEGATIVE) Urine Nitrite Negative (NEGATIVE) Urine Bilirubin Negative (NEGATIVE) Urine Urobilinogen Normal MG/DL (0.0-1.0) Urine Leukocyte Esterase 1+ (NEGATIVE) Urine RBC 15-20 /HPF (0 - 2) Urine WBC 2-4 /HPF (0 - 2) Urine Squamous Epithelial Cells Many /LPF (NONE/OCC) Urine Bacteria Moderate /HPF (NONE) Urine HCG, Qualitative Negative (NEGATIVE) Urine Opiates Screen Negative (NEGATIVE) Urine Barbiturates Screen Negative (NEGATIVE) Phencyclidine (PCP) Screen Negative (NEGATIVE) Urine Amphetamines Screen Negative (NEGATIVE) Urine Benzodiazepines Screen Negative (NEGATIVE) Urine Cocaine Screen Negative (NEGATIVE) Urine Marijuana (THC) Screen Negative (NEGATIVE) EKG Diagnostic Results EP Interpretation: Dr. Cleveland Rate: normal - 74 bpm Rhythm: NSR ST Segments: no acute changes ASA given to the pt in ED: No PA Scribe Text This Interpretation was scribed by ARIADNA Vigil. Chest X-Ray Diagnostic Results Chest X-Ray Diagnostic Results : Chest X-Ray Ordered: Yes # of Views/Limited/Complete: 1 View Indication: Shortness of Breath EP Interpretation: Yes ARIADNA Xray: Interpretation reviewed, by supervising MD, and agrees with findings. Interpretation: no consolidation, no effusion, no pneumothorax, no acute cardiopulmonary disease Impression: No acute disease Electronically Signed by: Suzanne Vigil PA-C Last Vital Signs Date Time Temp Pulse Resp B/P (MAP) Pulse Ox O2 Delivery O2 Flow Rate FiO2 03/18/19 18:43 99.1 84 16 124/84 (97) 99 Room Air Disposition: HOME, SELF-CARE Condition: Stable Scripts Nitrofurantoin Monohyd/M-Cryst* (MACROBID 100 MG*) 100 Mg Capsule 100 MG ORAL EVERY 12 HOURS for 5 Days, #10 CAP Prov: Suzanne Vigil 03/18/19 Iron,Carbonyl/Vit C/Vit B12/Fa (IRON 100 PLUS TABLET) 1 Each Tablet 1 EACH PO DAILY, #30 TAB Prov: Suzanne Vigil 03/18/19 Albuterol Sulfate* (ALBUTEROL SULFATE MDI*) 8.5 Gm Hfa.aer.ad 2 PUFF INH Q4H, #1 INH 0 Refills Prov: Suzanne Vigil 03/18/19 Patient Instructions: Asthma, Adult Additional Instructions: Take medications as directed. Follow up with a Primary Care Provider in 3-5 days, even if your symptoms have resolved. --Please review list of primary care clinics, if you do not already have a primary care provider Return sooner to ED if new symptoms occur, or current symptoms become worse. - Please note that this Emergency Department Report was dictated using [employer] roller [employer] supervisor technology software, occasionally this can lead to erroneous entry secondary to interpretation by the dictation equipment. Suzanne Vigil Mar 18, 2019 19:16
[2019-03-18] MEDS ORDERED: Albuterol ud Inhalation HHN ONE (19:30)
--- NOTE | 2019-03-18 19:34 | NUR ---
ED Nurse Note: Breathing tx at bedside c/o RT.
[2019-03-18 20:18] LABS: BASOPHILS % (AUTO) 1.6 % (0.0-2.0); EOSINOPHILS % (AUTO) 1.4 % (0.0-3.0); HEMATOCRIT 32.3 % (37.0-47.0); HEMOGLOBIN 9.8 G/DL (12.0-16.0); LYMPHOCYTES % (AUTO) 30.1 % (20.0-45.0); MEAN CORPUSCULAR VOLUME 76 FL (80-99); MONOCYTES % (AUTO) 8.8 % (1.0-10.0); PLATELET COUNT 265 K/UL (150-450); RED BLOOD COUNT 4.28 M/UL (4.20-5.40); RED CELL DISTRIBUTION WIDTH 14.1 % (11.6-14.8); WHITE BLOOD COUNT 9.7 K/UL (4.8-10.8)
[2019-03-18 20:31] LABS: ANION GAP 8 mmol/L (5-15); BLOOD UREA NITROGEN 26 mg/dL (7-18); CALCIUM 8.9 MG/DL (8.5-10.1); CARBON DIOXIDE 24 MMOL/L (21-32); CHLORIDE 105 MMOL/L (98-107); CREATININE 0.8 MG/DL (0.55-1.30); POTASSIUM 4.1 MMOL/L (3.5-5.1); SODIUM 137 MMOL/L (136-145)
[2019-03-18 20:37] LABS: ALANINE AMINOTRANSFERASE 19 U/L (12-78); ALBUMIN 3.7 G/DL (3.4-5.0); ALBUMIN/GLOBULIN RATIO 0.8 (1.0-2.7); ALKALINE PHOSPHATASE 112 U/L (46-116); ASPARTATE AMINO TRANSFERASE 17 U/L (15-37); BILIRUBIN,TOTAL 0.2 MG/DL (0.2-1.0); CREATINE KINASE 46 U/L (26-308)
--- NOTE | 2019-03-18 20:49 | NUR ---
ED Nurse Note: Xray done at bedside.
[2019-03-18 20:50] VITALS: BP_SYST 110; BP_SYST 123; BP_SYST 131; BP_DIAS 70; BP_DIAS 80; BP_DIAS 85
[2019-03-18] MEDS ORDERED: ALBUTEROL SULF8.5 GM INH (21:34)
[2019-03-18] MEDS ORDERED: IRON 100 PLUS1 EACH PO (21:34)
[2019-03-18 22:00] VITALS: BP 118/77
[2019-03-18 22:32] LABS: APPEARANCE,URINE SLIGHTLY CLOUDY; BILIRUBIN, URINE NEGATIVE (NEGATIVE); COLOR,URINE PALE YELLOW; GLUCOSE, URINE (UA) NEGATIVE (NEGATIVE); KETONES,URINE NEGATIVE (NEGATIVE); LEUKOCYTE ESTERASE ,URINE 1+ (NEGATIVE); NITRITE,URINE NEGATIVE (NEGATIVE); PH,URINE 5 (4.5-8.0); PROTEIN,URINE 1+ (NEGATIVE); UROBILINOGEN,URINE NORMAL MG/DL (0.0-1.0)
[2019-03-18] MEDS ORDERED: NITROFURANTOIN100 M2 ORAL ×2 (22:45→22:48)
[2019-03-18 22:46] VITALS: BP 118/77
--- NOTE | 2019-03-18 22:46 | NUR ---
ED Nurse Note: Pt cleared by ERMD for discharge. DC instructions/prescription was given and explained to pt and verbalized understanding of teachings. All medical devices such as ID band and IV line removed. Pt is AAO x4, ambulatory and left with all personal belongings.
--- NOTE | 2019-03-19 16:02 | Diagnostic Imaging Report ---
Indication: Chest pain Technique: One view of the chest Comparison: 08/09/2017 Findings: Lungs and pleural spaces are clear. Heart size is normal. No significant interim change Impression: No acute process
== END 2019-03-18 22:46 | disposition home or self-care (01) ==
LOC: EMR 21:15
DX: J45.20 Mild intermittent asthma, uncomplicated (principal); N30.00 Acute cystitis without hematuria; I10 Essential (primary) hypertension; Z91.041 Radiographic dye allergy status; Z91.018 Allergy to other foods; Z91.013 Allergy to seafood; Z91.14 Patient's other noncompliance with medication regimen
CPT/HCPCS: 36415; 71045; 80053; 80307; 81003; 81025; 82550; 84484; 85025; 87086; 93005; 94640; 96360; Z7502; 99284; J7030

== ENCOUNTER 2019-03-23 10:54 | Emergency (ER) | payer MEDICAID ==
[~2019-03-23] VITALS: Ht 171.4 cm; Wt 68.9 kg
[~2019-03-23 10:54] MED LIST changes: +IRON 100 PLUS1 EACH PO; +NITROFURANTOIN100 M2 ORAL
[2019-03-23 11:14] VITALS: BP 117/84
--- NOTE | 2019-03-23 11:16 | NUR ---
ED Nurse Note: Pt walked in from home, AOx4, c/o generalized weakness. Pt also states she has asthma, c/o that prescried albuterol is no relief. Pt on room air at this time, saturating 100%; no respiratory distress noted. Denies n/v/diarrhea/pain/discomfort at this time.
[2019-03-23] MEDS ORDERED: Albuterol ud Inhalation HHN ONE ×2 (11:45→13:45)
--- NOTE | 2019-03-23 11:45 | NUR ---
ED Nurse Note: RT at bedside for breathing treatment.
--- NOTE | 2019-03-23 11:54 | Emergency Room Report ---
History of Present Illness General Chief Complaint: General Complaint Source: Medical Record (Suzanne Vigil) Present Illness HPI 38 YO female presents to the ED c/o persistent weakness and exacerbation of her asthma x 5 days. pt. reports she was here last week and had a breathing tx, which made her feel better, but her symptoms returned. Pt. reports finishing abx for UTI as well. She reports she has not followed up with PMD. Pt. reports hx of [place] 5 years ago at [facility]. Pt. denies CP. reports one episode of palpitation since last ED visit. She reports persistent nausea. She states she vomitted a few days ago but has been nauseated ever since. Pt. denies recent travel. Denies abdominal pain, constipation, or diarrhea. She denies urinary frequency or urgency. PT. denies dizziness or syncope. Pt. denies ANAYA, visual changes or auditory symptoms. Pt. denies pain, fevers or chills. (Suzanne Vigil) Allergies: Coded Allergies: IODINE (Verified Allergy, Unknown, 07/11/16) PINEAPPLE (Verified Allergy, Unknown, 07/11/16) Uncoded Allergies: FISH (Allergy, Unknown, 07/11/16) Patient History Last Menstrual Period: 03/18/19 (Suzanne Vigil) Nursing Documentation-PMH Hx Hypertension: Yes Hx Asthma: Yes (Suzanne Vigil) Physical Exam Vital Signs Date Time Temp Pulse Resp B/P (MAP) Pulse Ox O2 Delivery O2 Flow Rate FiO2 03/23/19 10:58 98.2 74 18 117/84 (95) 99 Room Air 03/23/19 11:45 21 (Suzanne Vigil) Medical Decision Making PA Attestation Dr. Cleveland Is my supervising Physician whom patient management has been discussed with. (Suzanne Vigil) Diagnostic Impression: Primary Impression: Asthma exacerbation Qualified Codes: J45.31 - Mild persistent asthma with (acute) exacerbation ER Course 38 YO female presents to the ED c/o persistent weakness and exacerbation of her asthma x 5 days. pt. reports she was here last week and had a breathing tx, which made her feel better, but her symptoms returned. Pt. reports finishing abx for UTI as well. She reports she has not followed up with PMD. Pt. reports hx of [place] 5 years ago at [facility]. Pt. denies CP. reports one episode of palpitation since last ED visit. She reports persistent nausea. She states she vomitted a few days ago but has been nauseated ever since. Pt. denies recent travel. Denies abdominal pain, constipation, or diarrhea. She denies urinary frequency or urgency. PT. denies dizziness or syncope. Pt. denies ANAYA, visual changes or auditory symptoms. Pt. denies pain, fevers or chills. (Suzanne Vigil) Last Vital Signs Date Time Temp Pulse Resp B/P (MAP) Pulse Ox O2 Delivery O2 Flow Rate FiO2 03/23/19 11:45 77 19 100 Room Air 21 03/23/19 11:14 98.2 117/84 (Suzanne Vigil) Disposition: HOME, SELF-CARE Condition: Stable Scripts Prednisone* (PREDNISONE*) 20 Mg Tablet 40 MG ORAL DAILY for 5 Days, #10 TAB Prov: Suzanne Vigil 03/23/19 Nebulizer (Compact Compressor Nebulizer) 1 Each Each EA MC for asthma, #1 Prov: Suzanne Vigil 03/23/19 Albuterol Sulfate* (ALBUTEROL SULFATE HHN*) 2.5 Mg/3 Ml Vial.neb 3 ML INH Q6H PRN for Shortness of Breath, #30 EA 0 Refills Prov: Suzanne Vigil 03/23/19 Patient Instructions: Asthma, Adult, [id number] Additional Instructions: Take medications as directed. Follow up with a Primary Care Provider in 3-5 days, even if your symptoms have resolved. --Please review list of primary care clinics, if you do not already have a primary care provider Return sooner to ED if new symptoms occur, or current symptoms become worse. - Please note that this Emergency Department Report was dictated using [employer] operator technology software, occasionally this can lead to erroneous entry secondary to interpretation by the dictation equipment. Suzanne Vigil Mar 23, 2019 11:54 Angelo Cleveland MD Mar 25, 2019 17:32
--- NOTE | 2019-03-23 12:15 | NUR ---
ED Nurse Note: urine sent to lab
[2019-03-23 13:07] LABS: APPEARANCE,URINE SLIGHTLY CLOUDY; BILIRUBIN, URINE NEGATIVE (NEGATIVE); GLUCOSE, URINE (UA) NEGATIVE (NEGATIVE); KETONES,URINE 1+ (NEGATIVE); LEUKOCYTE ESTERASE ,URINE 2+ (NEGATIVE); NITRITE,URINE NEGATIVE (NEGATIVE); PH,URINE 5 (4.5-8.0); PROTEIN,URINE 2+ (NEGATIVE); UROBILINOGEN,URINE NORMAL MG/DL (0.0-1.0)
[2019-03-23 13:13] LABS: COLOR,URINE YELLOW
--- NOTE | 2019-03-23 14:05 | NUR ---
ED Nurse Note: RT at bedside, pt receiving breathing treatment at this time.
[2019-03-23] MEDS ORDERED: ALBUTEROL2.5 MG/3 M INH ×2 (14:07→14:08)
[2019-03-23] MEDS ORDERED: PREDNISONE20 MG ORAL ×2 (14:07→14:08)
[2019-03-23] MEDS ORDERED: COMPACT COMPRE1 EACH MC ×2 (14:07→14:08)
--- NOTE | 2019-03-23 14:35 | NUR ---
ER DISCHARGE NOTE: Patient is cleared to be discharged per ERMD, pt is aox4, on room air, with stable vital signs. pt was given dc and prescription instructions, pt was able to verbalize understanding, pt id band removed without complications. pt is able to ambulate with steady gait. pt took all belongings.
[2019-03-23 14:39] VITALS: BP 119/85
== END 2019-03-23 14:35 | disposition home or self-care (01) ==
LOC: EMR 12:45
DX: J45.31 Mild persistent asthma with (acute) exacerbation (principal); I10 Essential (primary) hypertension; Z91.018 Allergy to other foods; Z91.013 Allergy to seafood; Z91.041 Radiographic dye allergy status; I25.2 Old myocardial infarction
CPT/HCPCS: 81003; 81025; 94640; 94664; J7512; Z7502; 99283

== ENCOUNTER 2019-04-04 17:51 | Emergency (ER) | payer MEDICAID ==
[~2019-04-04] VITALS: Ht 170.2 cm; Wt 67.1 kg
[~2019-04-04 17:51] MED LIST changes: +ALBUTEROL2.5 MG/3 M INH; +COMPACT COMPRE1 EACH MC; +PREDNISONE20 MG ORAL
[2019-04-04 18:00] VITALS: BP 122/92
[2019-04-04] MEDS ORDERED: Tetanus/Diptheria/Pertussis IM ONE (18:30)
[2019-04-04] MEDS ORDERED: Neosporin Oint Ud Pkt TOPIC ONE (18:30)
--- NOTE | 2019-04-04 18:38 | NUR ---
ED Nurse Note: WOUND IRRIGATION WITH NS DONE AND APPLIED ANTIBIOTIC ON WOUND THEN COVERED WITH DRY DRESSING.
--- NOTE | 2019-04-04 18:39 | Emergency Room Report ---
History of Present Illness General Chief Complaint: Animal Bite Source: Patient Present Illness HPI 38-year-old female presents to the emergency department complaining of 8 out of 10 severity right posterior calf pain status post allegedly dog bite. Patient reports she sustained a dog bite from a stray dog for which she is not knowledgeable of its vaccination status. Patient believes she is up-to-date with tetanus however she is not quite sure. Patient denies fevers or chills she denies bleeding or erythema. Patient reports moderate tenderness she denies bone pain or inability to ambulate. She reports pain is exacerbated upon ambulation. Patient denies taking blood thinning medications. No other aggravating or reliving factors at this time. Allergies: Coded Allergies: IODINE (Verified Allergy, Unknown, 07/11/16) PINEAPPLE (Verified Allergy, Unknown, 07/11/16) Uncoded Allergies: FISH (Allergy, Unknown, 07/11/16) Patient History Past Medical History: see triage record Past Surgical History: none Pertinent Family History: none Last Menstrual Period: 03/30/19 Now: No Reviewed Nursing Documentation: PMH: Agreed; PSxH: Agreed Nursing Documentation-PMH Past Medical History: No History, Except For Hx Hypertension: Yes Hx Asthma: Yes Review of Systems All Other Systems: negative except mentioned in HPI Physical Exam Vital Signs Date Time Temp Pulse Resp B/P (MAP) Pulse Ox O2 Delivery O2 Flow Rate FiO2 04/04/19 18:00 98.6 84 16 122/92 98 Room Air Sp02 EP Interpretation: reviewed, normal General Appearance: no apparent distress, alert, GCS 15, non-toxic Head: normocephalic, atraumatic Eyes: bilateral eye normal inspection, bilateral eye PERRL ENT: hearing grossly normal, normal voice Neck: full range of motion Respiratory: lungs clear, normal breath sounds, speaking full sentences Cardiovascular #1: regular rate, rhythm Cardiovascular #2: 4+ dorsalis pedis (R) - post. tib. Musculoskeletal: back normal, gait/station normal, normal range of motion, non- tender Neurologic: alert, oriented x3, responsive, motor strength/tone normal, sensory intact, speech normal, grossly normal Psychiatric: judgement/insight normal Skin: other - 3 3cm linear avulsions to the post. right calf. They did break the skin in several areas, not reaching depths of subq fat. Lymphatic: no adenopathy Medical Decision Making PA Attestation Dr. Clements is my supervising Physician whom patient management has been discussed with. Diagnostic Impression: Primary Impression: Dog bite of calf Qualified Codes: S81.851A - Open bite, right lower leg, initial encounter; W54.0XXA - Bitten by dog, initial encounter ER Course 38-year-old female presents to the emergency department complaining of 8 out of 10 severity right posterior calf pain status post allegedly dog bite. Patient reports she sustained a dog bite from a stray dog for which she is not knowledgeable of its vaccination status. Patient believes she is up-to-date with tetanus however she is not quite sure. Patient denies fevers or chills she denies bleeding or erythema. Patient reports moderate tenderness she denies bone pain or inability to ambulate. She reports pain is exacerbated upon ambulation. Patient denies taking blood thinning medications. No other aggravating or reliving factors at this time. Ddx considered but are not limited to Cellulitis, rabies, fracture, neurovascular compromise of extremity. Vital signs: are WNL, pt. is afebrile H&PE are most consistent with ST dog bite which did break skin. No signs of infection. No bony ttp. ORDERS: none required at this time, the diagnosis is clinical ED INTERVENTIONS: - Wound was copiously irrigated under pressure by certified physician's assistant. -Tetanus vaccination is administered. Motrin given PO, Neosporin and sterile dressing was applied by RN. DISCHARGE: At this time pt. is stable for d/c to home. Will provide printed patient care instructions, and any necessary prescriptions. Care plan and follow up instructions have been discussed with the patient prior to discharge. * Augmentin BID x 7 days. Last Vital Signs Date Time Temp Pulse Resp B/P (MAP) Pulse Ox O2 Delivery O2 Flow Rate FiO2 04/04/19 18:00 98.6 84 16 122/92 (102) 98 Room Air Disposition: HOME, SELF-CARE Condition: Stable Scripts Ibuprofen* (MOTRIN*) 600 Mg Tablet 600 MG ORAL THREE TIMES A DAY, #30 TAB 0 Refills Prov: Suzanne Vigil 04/04/19 Bacitracin/Polymyxin B Sulfate (BACITRACIN-POLYMYXIN OINTMENT) 28.35 Gm Oint...g. 1 APPLIC TP BID, #28.3 GM Prov: Suzanne Vigil 04/04/19 Acetaminophen With Codeine (T#3) (TYLENOL #3 TAB*) Y Tab 1 TAB ORAL Q8HR PRN for For Pain, #6 TAB Prov: Suzanne Vigil 04/04/19 Amoxicillin/Potassium Clav 875-125* (AUGMENTIN 875-125 TABLET*) 1 Each Tablet 1 TAB ORAL TWICE A DAY for 7 Days, #14 TAB Prov: Suzanne Vigil 04/04/19 Patient Instructions: Animal Bite Additional Instructions: Take medications as directed. Follow up with a Primary Care Provider in 3-5 days, even if your symptoms have resolved. --Please review list of primary care clinics, if you do not already have a primary care provider Return sooner to ED if new symptoms occur, or current symptoms become worse. Do not drink alcohol, drive, or operate heavy machinery while taking Tylenol # 3 as this may cause drowsiness. - Please note that this Emergency Department Report was dictated using [employer] greaser technology software, occasionally this can lead to erroneous entry secondary to interpretation by the dictation equipment. Suzanne Vigil Apr 04, 2019 18:39
[2019-04-04] MEDS ORDERED: BACITRACIN-P28.35 GM TP (18:48)
[2019-04-04] MEDS ORDERED: ACETAMINOPHEN-1 EAC1 ORAL (18:48)
[2019-04-04] MEDS ORDERED: IBUPROFEN600 MG ORAL (18:48)
[2019-04-04] MEDS ORDERED: AUGMENTIN 875-1 EAC1 ORAL (18:48)
[2019-04-04 19:03] VITALS: BP 135/89
--- NOTE | 2019-04-04 19:03 | NUR ---
ER DISCHARGE NOTE: Patient is cleared to be discharged per PA, pt is aox4, on room air, with stable vital signs. pt was given dc and prescription instructions, pt was able to verbalize understanding, pt id band removed without complications. pt is able to ambulate with steady gait. pt took all belongings.
== END 2019-04-04 19:03 | disposition home or self-care (01) ==
LOC: EMR 18:30
DX: S81.851A Open bite, right lower leg, initial encounter (principal); I10 Essential (primary) hypertension; J45.909 Unspecified asthma, uncomplicated; Z91.041 Radiographic dye allergy status; Z91.018 Allergy to other foods; Z91.013 Allergy to seafood; Z23 Encounter for immunization; W54.0XXA Bitten by dog, initial encounter; Y92.9 Unspecified place or not applicable
CPT/HCPCS: 90471; 90715; Z7502; 99282